=== PATIENT | male | born 1990 | race Hispanic/Latino ===

== ENCOUNTER 2020-04-15 11:11 | Observation (INO) | payer BC ==
[~2020-04-15] VITALS: Ht 160 cm; Wt 102.5 kg
[2020-04-15 11:46] VITALS: BP 122/77
[2020-04-15] MEDS ORDERED: BUTORPHANOL TARTRATE 2 MG/ML IVP PRN (12:15)
[2020-04-15] MEDS ORDERED: ONDANSETRON HCL 4 MG/2 ML VIAL IVP PRN (12:15)
[2020-04-15] MEDS: DEXTROSE 5 % AND 0.9 % NACL 1,000 ML IV SCH ×2 (12:15→20:40)
--- NOTE | 2020-04-15 14:25 | NUR ---
SPOKE WITH AURA FROM DR. WELLS'S OFFICE IN REGARDS TO NEW GI CONSULT. TO BE NOTIFIED.
[2020-04-15] MEDS: MEPERIDINE-PF 50 MG/ML SYG IM PRN ×2 (14:45→23:44)
[2020-04-15] MEDS: PROMETHAZINE HCL 25 MG/ML 1ML AMPULE IM PRN ×2 (14:45→23:43)
[2020-04-15 14:56] LABS: HEMATOCRIT 35.8 % (42-54); MEAN CORPUSCULAR HEMOGLOBIN 28.3 pg (27.0-33.0); MEAN CORPUSCULAR HGB CONC 34.4 g/dL (32.0-36.0); MEAN CORPUSCULAR VOLUME 82.3 fL (79-99); RED BLOOD CELL COUNT(AUTO) 4.35 MIL/uL (4.50-6.20); RED CELL DISTRIBUTION WIDTH 14.2 % (11.0-15.5); WHITE BLOOD COUNT (AUTO) 12.7 K/uL (4.8-10.8)
--- NOTE | 2020-04-15 15:20 | NUR ---
AURA FROM DR. WELLS'S OFFICE CALLED AND STATED THAT DR. WELLS REQUIRES A COVID PCR SWAB TO BE DONE PRIOR TO ANY CONSULT.
[2020-04-15 15:58] LABS: ALBUMIN 3.1 g/dL (3.5-5.0); BILIRUBIN,DIRECT 1.4 mg/dL (0.0-0.3); CREATININE 0.4 mg/dL (0.5-1.5); POTASSIUM 3.3 mmol/L (3.5-5.1); TOTAL PROTEIN, SERUM 7.4 g/dL (6.0-8.3)
[2020-04-15 16:09] VITALS: BP 123/68
--- NOTE | 2020-04-15 17:00 | NUR ---
DR. SCOTT CALLED AND WAS UPDATED ON PATIENT'S STATUS, LABS AND US RESULTS. INFORMED DR. SCOTT PER DR. FRENCH NURSE AURA DR. FRENCH REQUIRES ALL CONSULTS TO HAVE COVID PCR DONE AND THAT SWAB WAS DONE ALREADY. NO NEW ORDERS RECEIVED.
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
[2020-04-15 19:46] VITALS: BP 115/69
[2020-04-15] MEDS: FAMOTIDINE/PF 20 MG/2 ML VIAL IV SCH (20:40)
[2020-04-15 23:14] VITALS: BP 126/66
[2020-04-16] MEDS: DEXTROSE 5 % AND 0.9 % NACL 1,000 ML IV SCH (01:38)
[2020-04-16 03:58] VITALS: BP 115/71
[2020-04-16] MEDS ORDERED: PANT40TA25 PO (07:44)
[2020-04-16] MEDS ORDERED: ONDA4TAB10 PO (07:44)
[2020-04-16] MEDS ORDERED: FOLI20CA PO (07:44)
[2020-04-16] MEDS ORDERED: DOCU-272 PO (07:44)
[2020-04-16] MEDS ORDERED: NITR100C PO (07:44)
[2020-04-16 07:45] VITALS: BP 118/69
--- NOTE | 2020-04-16 08:25 | NUR ---
SPOKE WITH DR. WELLS VIA TELEPHONE. NEW ORDERS RECEIVED TO REPEAT LABS.
--- NOTE | 2020-04-16 08:30 | NUR ---
DR. SCOTT ROUNDING ON PATIENT. INFORMED MD ON 'S STANDPOINT. NEW ORDERS FOR GENERAL SURGICAL CONSULT ORDERED.
--- NOTE | 2020-04-16 08:50 | NUR ---
DR. CLARK ROUNDING ON PATIENT AND SPOKE WITH DR. SCOTT. POC DISCUSSED WITH PATIENT. QUESTIONS INVITED AND ANSWERED.
[2020-04-16] MEDS: FAMOTIDINE/PF 20 MG/2 ML VIAL IV SCH (09:19)
[2020-04-16 09:30] LABS: HEMATOCRIT 32.5 % (42-54); MEAN CORPUSCULAR HEMOGLOBIN 28.1 pg (27.0-33.0); MEAN CORPUSCULAR HGB CONC 34.2 g/dL (32.0-36.0); MEAN CORPUSCULAR VOLUME 82.3 fL (79-99); RED BLOOD CELL COUNT(AUTO) 3.95 MIL/uL (4.50-6.20); RED CELL DISTRIBUTION WIDTH 14.1 % (11.0-15.5); WHITE BLOOD COUNT (AUTO) 9.2 K/uL (4.8-10.8)
[2020-04-16 09:47] LABS: ALBUMIN 2.4 g/dL (3.5-5.0); BILIRUBIN,TOTAL 1.3 mg/dL (0.2-1.0); CREATININE 0.5 mg/dL (0.5-1.5); POTASSIUM 3.3 mmol/L (3.5-5.1); TOTAL PROTEIN, SERUM 6.2 g/dL (6.0-8.3)
[2020-04-16 11:15] VITALS: BP 112/70
--- NOTE | 2020-04-16 12:30 | NUR ---
SPOKE WITH DR. WELLS AND NOTIFIED ON LAB RESULTS AND DR. SCOTT/ DR. CLARK POC. DR. WELLS STATES PATIENT OKAY TO BE DISCHARGED FROM HIS STANDPOINT.
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
== END 2020-04-16 14:55 | disposition home or self-care (01) ==
LOC: EDH 11:11 → WSH 11:12
PROVIDERS: ADMIT Obstetrics & Gynecology; ATTEND Obstetrics & Gynecology
DX: U07.1 COVID-19 (principal); K85.90 Acute pancreatitis without necrosis or infection, unspecified; R17 Unspecified jaundice
CPT/HCPCS: 36415 ×2; 76705; 80053 ×2; 80076; 82150 ×2; 83690 ×2; 85027 ×2; 96361 ×2; 96372; 96374; 96376; 99284; G0378 ×14; J2175 ×2; J2550 ×2; J3490 ×2; J7042 ×2; U0003

== ENCOUNTER 2020-04-23 06:26 | Day surgery (SDC) | payer BC ==
[2020-04-18 11:34] LABS: BASOPHILS % (AUTO) 0.5 % (0.0-5.0); EOSINOPHILS % (AUTO) 1.8 % (0.0-8.0); HEMATOCRIT 35.7 % (42-54); LYMPHOCYTES % (AUTO) 17.6 % (21.0-51.0); MEAN CORPUSCULAR HEMOGLOBIN 27.9 pg (27.0-33.0); MEAN CORPUSCULAR HGB CONC 33.6 g/dL (32.0-36.0); MONOCYTES % (AUTO) 5.1 % (3.0-13.0); NEUTROPHILS % (AUTO) 74.6 % (40.0-77.0); PLATELET COUNT (AUTO) 380 K/uL (130-400); RED CELL DISTRIBUTION WIDTH 13.7 % (11.0-15.5); WHITE BLOOD COUNT (AUTO) 9.4 K/uL (4.8-10.8)
[~2020-04-23] VITALS: Ht 160 cm; Wt 104.2 kg
[2020-04-23] VITALS (17 sets, daily range): BP systolic 121–141; BP diastolic 62–88
[2020-04-23] MEDS: CEFAZOLIN SODIUM 1 GM VIAL IVP SCH ×2 (06:00→11:15)
[~2020-04-23 06:26] MED LIST: DOCU-272 PO; FOLI0.4T2 PO; ONDA4TAB10 PO; PREN-18 PO
[2020-04-23] MEDS ORDERED: LACTATED RINGERS 1000ML 1,000 ML IV ONE (06:54)
[2020-04-23] MEDS ORDERED: BUPIVACAINE/PF 0.5% 30ML VIAL ONE (08:09)
[2020-04-23] MEDS ORDERED: DEXAMETHASONE SOD PHOSPHATE 10MG/ML 1ML VIAL ONE (11:09)
[2020-04-23] MEDS ORDERED: PROPOFOL 10 MG/ML 20ML VIAL IV ONE (11:09)
[2020-04-23] MEDS ORDERED: LIDOCAINE PF 2% 5ML ABBOJECT ONE (11:09)
[2020-04-23] MEDS ORDERED: ONDANSETRON HCL 4 MG/2 ML VIAL ONE (11:09)
[2020-04-23] MEDS ORDERED: FENTANYL CITRATE PF 50 MCG/1 ML 2ML VIAL ONE ×2 (11:09→12:02)
[2020-04-23] MEDS ORDERED: MIDAZOLAM HCL 1 MG/ML 2ML VIAL ONE (11:09)
[2020-04-23] MEDS ORDERED: ROCURONIUM 10MG/1ML SYR 10 MG/ML ML ONE ×3 (11:10→12:27)
[2020-04-23] MEDS ORDERED: GLYCOPYRROLATE 1 MG/5 ML SYRINGE ONE (12:53)
[2020-04-23] MEDS ORDERED: NEOSTIGMINE 5MG/5ML SYR IV ONE (12:53)
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
--- NOTE | 2020-04-23 14:50 | NUR ---
DISCHARGE PRESCRIPTION GIVEN TO PT. DRSG X3 DRY AND INTACT. NO BLEEDING NOTED TO EARNESTINE PAD. INSTRUCTIONS GIVEN.
== END 2020-04-23 14:55 | disposition home or self-care (01) ==
LOC: DAH 06:26
PROVIDERS: ATTEND Obstetrics & Gynecology
DX: O99.611 Diseases of the digestive system complicating pregnancy, first trimester (principal); K80.10 Calculus of gallbladder with chronic cholecystitis without obstruction; O34.31 Maternal care for cervical incompetence, first trimester; Z3A.12 12 weeks gestation of pregnancy
CPT/HCPCS: 36415 ×2; 47562; 59320; 76815; 85025; 86850; 86900; 86901; A4215; A4221; A4222; A4223; A4351; A4649 ×5; A4663; A4930; A6206; A6207; C1769 ×4; J0690; J1100; J2001; J2405; J2704; J2710; J3010 ×2; J3490 ×2; J7030; J7120; J2250

== ENCOUNTER 2020-09-01 12:03 | Observation (INO) | payer OTHER, BC ==
[~2020-09-01] VITALS: Ht 160 cm; Wt 112.0 kg
[~2020-09-01 12:03] MED LIST changes: -DOCU-272 PO; +DOCU-280 PO; -FOLI0.4T2 PO; +FOLI0.4T6 PO
[2020-09-01 12:39] LABS: APPEARANCE,URINE Clear (CLEAR); BILIRUBIN,URINE Negative (NEGATIVE); COLOR,URINE Yellow (YELLOW); GLUCOSE, URINE (UA) Negative (NEGATIVE); KETONES,URINE Negative (NEGATIVE); LEUKOCYTE ESTERASE ,URINE Moderate (NEGATIVE); NITRATE,URINE Negative (NEGATIVE); OCCULT BLOOD,URINE Small (NEGATIVE); PH,URINE 7.5 (5.0-8.0); PROTEIN,URINE Negative (NEGATIVE); UROBILINOGEN,URINE 0.2 mg/dL (0.2-1.0)
[2020-09-01 13:08] LABS: BACTERIA,URINE Few /HPF (None Seen); RBC,URINE 0-1 /HPF (0-1)
[2020-09-01] MEDS ORDERED: PHARMACY COMMUNICATION MISC SCH (13:30)
[2020-09-01] MEDS ORDERED: CELESTONE SOLUSPAN 6 MG/ML 5ML VIAL IM SCH (14:00)
[2020-09-24] MEDS ORDERED: FOLI0.4T6 PO (02:35)
== END 2020-09-02 14:03 | disposition home or self-care (01) ==
LOC: EDH 12:03 → OBSVTOIN 12:04 → INTOOBSV 12:04 → LDH 12:04 → WSH 13:35
PROVIDERS: ADMIT Obstetrics & Gynecology; ATTEND Obstetrics & Gynecology
DX: O34.33 Maternal care for cervical incompetence, third trimester (principal); O26.853 Spotting complicating pregnancy, third trimester; O09.293 Supervision of pregnancy with other poor reproductive or obstetric history, third trimester; Z86.19 Personal history of other infectious and parasitic diseases; Z90.49 Acquired absence of other specified parts of digestive tract; Z3A.29 29 weeks gestation of pregnancy
CPT/HCPCS: 59025; 76805; 81001; 87088; 96372; 99284; G0378 ×26; J0702 ×2

== ENCOUNTER 2020-09-24 02:16 | Inpatient (IN) | payer OTHER, BC ==
[~2020-09-24] VITALS: Ht 160 cm; Wt 113.4 kg
[~2020-09-24 02:16] MED LIST changes: +DOCU-272 PO; -DOCU-280 PO; +FOLI0.4T2 PO; -FOLI0.4T6 PO
[2020-09-24] MEDS ORDERED: DOCU-116 PO (02:35)
[2020-09-24] MEDS ORDERED: PREN-196 PO (02:35)
[2020-09-24] MEDS ORDERED: FOLI0.4T2 PO (02:35)
[2020-09-24] MEDS ORDERED: LACTATED RINGERS 1000ML 1,000 ML IV PRN (03:00)
[2020-09-24 03:08] LABS: APPEARANCE,URINE Clear (CLEAR); BILIRUBIN,URINE Negative (NEGATIVE); COLOR,URINE Yellow (YELLOW); GLUCOSE, URINE (UA) Negative (NEGATIVE); KETONES,URINE Negative (NEGATIVE); LEUKOCYTE ESTERASE ,URINE Moderate (NEGATIVE); NITRATE,URINE Negative (NEGATIVE); OCCULT BLOOD,URINE Large (NEGATIVE); PROTEIN,URINE Negative (NEGATIVE); UROBILINOGEN,URINE 0.2 mg/dL (0.2-1.0)
[2020-09-24 03:12] LABS: HEMATOCRIT 34.9 % (36-48); MEAN CORPUSCULAR HEMOGLOBIN 28.2 pg (27.0-33.0); MEAN CORPUSCULAR HGB CONC 34.1 g/dL (32.0-36.0); MEAN CORPUSCULAR VOLUME 82.7 fL (79-99); RED BLOOD CELL COUNT(AUTO) 4.22 MIL/uL (4.00-5.50); RED CELL DISTRIBUTION WIDTH 13.9 % (11.0-15.5); WHITE BLOOD COUNT (AUTO) 12.4 K/uL (4.8-10.8)
[2020-09-24 03:17] LABS: AMPHET/METH SCREEN,URINE NEGATIVE (NEGATIVE); BARBITURATE SCREEN, URINE NEGATIVE (NEGATIVE); BENZODIAZEPINES SCREEN,URINE NEGATIVE (NEGATIVE); CANNABINOID SCREEN,URINE NEGATIVE (NEGATIVE); COCAINE SCREEN,URINE NEGATIVE (NEGATIVE); OPIATE SCREEN,URINE NEGATIVE (NEGATIVE); PHENCYCLIDINE SCREEN,URINE NEGATIVE (NEGATIVE)
[2020-09-24 03:19] LABS: BACTERIA,URINE Few /HPF (None Seen); RBC,URINE 0-1 /HPF (0-1)
[2020-09-24] MEDS ORDERED: MAGNESIUM 4GM PREMIX 100ML 100 ML IV SCH (03:30)
[2020-09-24] MEDS ORDERED: MAGNESIUM SULFATE 1,000 ML IV PRN (03:30)
[2020-09-24] MEDS ORDERED: CALCIUM GLUCONATE 1 GM/10 ML VIAL IV PRN (03:30)
[2020-09-24] MEDS: CELESTONE SOLUSPAN 6 MG/ML 5ML VIAL IM SCH ×2 (03:51→18:40)
[2020-09-24] MEDS: AMPICILLIN 2GM+NS 100ML 100 ML IV SCH ×3 (04:10→15:51)
[2020-09-24] MEDS ORDERED: ROPIVACAINE 0.2% 100ML VIAL 100 ML EP SCH (07:30)
[2020-09-24] MEDS ORDERED: NALOXONE HCL 0.4 MG/1 ML ML IV PRN (07:30)
[2020-09-24] MEDS ORDERED: BUTORPHANOL TARTRATE 2 MG/ML IVP PRN (07:30)
[2020-09-24] MEDS ORDERED: EPHEDRINE SULFATE 50 MG/ML AMPULE IVP PRN (07:30)
[2020-09-24] MEDS ORDERED: LACTATED RINGERS 500 ML 500 ML IV PRN (07:30)
[2020-09-24 08:13] LABS: RAPID PLASMA REAGIN NONREACTIVE (NONREACTIVE)
[2020-09-24 08:25] VITALS: BP 139/81
[2020-09-24] MEDS ORDERED: OXYTOCIN-LR 20 UNITS/1000 ML 1,000 ML IV ONE (08:40)
[2020-09-24] MEDS ORDERED: OXYTOCIN-LR 20 UNITS/1000 ML 1,000 ML IV SCH (08:45)
[2020-09-24] MEDS ORDERED: LIDOCAINE HCL 1% 20 ML VIAL ONE (23:22)
[2020-09-25] MEDS: AMPICILLIN 2GM+NS 100ML 100 ML IV SCH (04:04)
[2020-09-25] MEDS ORDERED: OXYTOCIN-LR 20 UNITS/1000 ML 1,000 ML IV SCH (08:30)
[2020-09-25] MEDS ORDERED: CALDOLOR 800MG+NS 250ML 250 ML IV PRN (08:30)
[2020-09-25] MEDS ORDERED: LACTATED RINGERS 1000ML 1,000 ML IV SCH (08:30)
[2020-09-25] MEDS ORDERED: CEFAZOLIN SODIUM 1 GM VIAL IVP PRN (08:30)
[2020-09-25] MEDS ORDERED: CEFAZOLIN SODIUM 1 GM VIAL ONE (09:08)
[2020-09-25] MEDS ORDERED: MISOPROSTOL 200 MCG TABLET ONE (09:08)
[2020-09-25] MEDS ORDERED: CALDOLOR 800MG+NS 250ML 250 ML IV ONE (09:08)
[2020-09-25] MEDS ORDERED: METHYLERGONOVINE MALEATE 0.2 MG/1 ML ML ONE (09:09)
[2020-09-25] MEDS ORDERED: ONDANSETRON HCL 4 MG/2 ML VIAL ONE (09:50)
[2020-09-25] MEDS ORDERED: ONDANSETRON HCL 4 MG/2 ML VIAL IVP SCH (10:00)
[2020-09-25] MEDS ORDERED: CITRIC ACID/SODIUM CITRATE 30 ML UDCUP ONE (10:10)
[2020-09-25] MEDS ORDERED: DURAMORPH PF1 MG/ML 10ML AMP IV ONE (10:12)
[2020-09-25] MEDS ORDERED: FENTANYL CITRATE PF 50 MCG/1 ML 2ML VIAL ONE (10:12)
[2020-09-25] MEDS ORDERED: DEXAMETHASONE SOD PHOSPHATE 10MG/ML 1ML VIAL ONE (10:20)
[2020-09-25] MEDS ORDERED: ACETAMINOPHEN-CODEINE 300/30MG TAB PO PRN (11:30)
[2020-09-25] MEDS ORDERED: SODIUM CHLORIDE 0.9% 10 ML VIAL IVP PRN (11:30)
[2020-09-25] MEDS ORDERED: DIPHENHYDRAMINE HCL 25 MG CAPSULE PO PRN (11:30)
[2020-09-25] MEDS: IBUPROFEN 800 MG TAB PO SCH ×2 (11:30→18:59)
[2020-09-25] MEDS ORDERED: OXYTOCIN-LR 20 UNITS/1000 ML 1,000 ML IV PRN (11:30)
[2020-09-25] MEDS ORDERED: BISACODYL 10 MG SUPP.RECT RC PRN (11:30)
[2020-09-25] MEDS ORDERED: ACETAMINOPHEN EXTRA STRENGTH 500 MG TABLET PO PRN (11:30)
[2020-09-25] MEDS ORDERED: LANOLIN 30GM OINTMENT TP PRN (11:30)
[2020-09-25] MEDS ORDERED: HYDROCODONE/ACETAMINOPHEN 5/325 MG TAB PO PRN (11:30)
[2020-09-25] MEDS ORDERED: EPHEDRINE SULFATE 50 MG/ML AMPULE IVP PRN (12:15)
[2020-09-25] MEDS ORDERED: NALOXONE HCL 0.4 MG/1 ML ML IVP PRN ×3 (12:15)
[2020-09-25] MEDS ORDERED: DiphenhydrAMINE HCL 50 MG/ML VIAL IVP PRN (12:15)
[2020-09-25] MEDS ORDERED: ONDANSETRON HCL 4 MG/2 ML VIAL IVP PRN (12:15)
[2020-09-25 13:14] LABS: HEPATITIS Bs ANTIGEN SCREEN P Negative (Negative)
[2020-09-25 15:00] VITALS: BP 121/76
[2020-09-25] MEDS: CALDOLOR 800MG+NS 250ML 250 ML IV SCH (18:58)
[2020-09-25] MEDS: DEXTROSE 5 %-0.45 % NACL 1,000 ML IV PRN (19:04)
[2020-09-25 19:31] VITALS: BP 111/71
[2020-09-25] MEDS: DOCUSATE SODIUM 100 MG CAP PO SCH (20:27)
[2020-09-25] MEDS: SIMETHICONE 80 MG TAB.CHEW PO PRN (20:27)
[2020-09-25] MEDS ORDERED: LORATADINE 10 MG TABLET PO PRN (21:15)
[2020-09-25 23:27] VITALS: BP 119/71
[2020-09-25] MEDS: PROMETHAZINE HCL 25 MG/ML 1ML AMPULE IM PRN (23:30)
[2020-09-25] MEDS: MEPERIDINE-PF 75 MG/ML SYG IM PRN (23:30)
[2020-09-26] MEDS: DEXTROSE 5 %-0.45 % NACL 1,000 ML IV PRN (03:27)
[2020-09-26] MEDS: CALDOLOR 800MG+NS 250ML 250 ML IV SCH (03:27)
[2020-09-26 03:30] VITALS: BP 116/55
[2020-09-26] MEDS: PROMETHAZINE HCL 25 MG/ML 1ML AMPULE IM PRN (03:44)
[2020-09-26] MEDS: MEPERIDINE-PF 75 MG/ML SYG IM PRN (03:45)
[2020-09-26 07:41] VITALS: BP 117/66
[2020-09-26] MEDS: SIMETHICONE 80 MG TAB.CHEW PO PRN (08:45)
[2020-09-26] MEDS: DOCUSATE SODIUM 100 MG CAP PO SCH (08:45)
[2020-09-26] MEDS: IBUPROFEN 800 MG TAB PO SCH ×2 (08:46→16:54)
[2020-09-26] MEDS ORDERED: LIDOCAINE 5% TOPICAL PATCH TP SCH (09:00)
[2020-09-26 11:14] VITALS: BP 119/66
[2020-09-26 16:51] VITALS: BP 132/73
== END 2020-09-26 18:15 | disposition home or self-care (01) | DRG 786 ==
LOC: EDH 02:16 → OBSVTOIN 02:17 → LDH 02:17 → WSH 09-25 14:50
PROVIDERS: ADMIT Obstetrics & Gynecology; ATTEND Obstetrics & Gynecology
PROC: 10D00Z1 Extraction of Products of Conception, Low, Open Approach (ICD-10-PCS; principal; 2020-09-25 10:00)
DX: O42.913 Preterm premature rupture of membranes, unspecified as to length of time between rupture and onset of labor, third trimester (principal); O60.14X0 Preterm labor third trimester with preterm delivery third trimester, not applicable or unspecified; O62.2 Other uterine inertia; Z3A.35 35 weeks gestation of pregnancy; Z37.0 Single live birth
CPT/HCPCS: 36415; 59510; 76805; 80305; 81001; 85027; 86592; 86701; 86850; 86900; 86901; 87088; 87340; 87390; A4314; A4344; G0378; J0290; J0690; J0702; J1100; J1741; J2175; J2210; J2274; J2405; J2550; J2590; J2795; J3010; J3475; J7120

== ENCOUNTER 2022-06-12 03:56 | Emergency (ER) | payer OTHER, BC ==
[~2022-06-12] VITALS: Ht 160 cm; Wt 111.1 kg
[~2022-06-12 03:56] MED LIST changes: +DOCU-116 PO; -DOCU-272 PO; +DOCU-280 PO; -FOLI0.4T2 PO; +FOLI0.4T6 PO; +PREN-196 PO
[2022-06-12 04:06] VITALS: BP 116/73
[2022-06-12] MEDS ORDERED: 0.9%NACL 1000ML 2,000 ML IV ONE (04:30)
[2022-06-12 04:36] LABS: BASOPHILS % (AUTO) 0.6 % (0.0-5.0); EOSINOPHILS % (AUTO) 2.3 % (0.0-8.0); HEMATOCRIT 36.7 % (36-48); LYMPHOCYTES % (AUTO) 10.4 % (21.0-51.0); MEAN CORPUSCULAR HEMOGLOBIN 27.9 pg (27.0-33.0); MEAN CORPUSCULAR HGB CONC 34.3 g/dL (32.0-36.0); MEAN CORPUSCULAR VOLUME 81.2 fL (79-99); MONOCYTES % (AUTO) 6.5 % (3.0-13.0); NEUTROPHILS % (AUTO) 79.8 % (40.0-77.0); PLATELET COUNT (AUTO) 329 K/uL (130-400); RED BLOOD CELL COUNT(AUTO) 4.52 MIL/uL (4.00-5.50); RED CELL DISTRIBUTION WIDTH 13.2 % (11.0-15.5); WHITE BLOOD COUNT (AUTO) 12.4 K/uL (4.8-10.8)
[2022-06-12 04:54] LABS: APPEARANCE,URINE CLOUDY (CLEAR); BILIRUBIN,URINE NEGATIVE (NEGATIVE); COLOR,URINE YELLOW (YELLOW); GLUCOSE, URINE (UA) NEGATIVE (NEGATIVE); KETONES,URINE NEGATIVE (NEGATIVE); LEUKOCYTE ESTERASE ,URINE NEGATIVE Leu/uL (NEGATIVE); NITRATE,URINE NEGATIVE (NEGATIVE); OCCULT BLOOD,URINE SMALL (NEGATIVE); PROTEIN,URINE 30 mg/dL (NEGATIVE); UROBILINOGEN,URINE 0.2 mg/dL (0.2-1.0)
[2022-06-12 04:58] LABS: ALBUMIN 3.6 g/dL (3.5-5.0); CREATININE 0.6 mg/dL (0.5-1.5)
[2022-06-12 04:58] LABS: MUCUS,URINE FEW LPF (None Seen); SQUAMOUS EPITHELIAL CELL,UR RARE /HPF (0-2)
[2022-06-12] MEDS ORDERED: DIPH1TAB PO (05:10)
[2022-06-12] MEDS ORDERED: CEFU500T67 PO (05:10)
[2022-06-12] MEDS ORDERED: DIPHENOXYLATE HCL/ATROPINE 2.5/0.025 MG TAB PO ONE (05:30)
[2022-06-12] MEDS ORDERED: KCL 20 MEQ ERTAB PO ONE ×2 (05:30→05:33)
== END 2022-06-12 05:56 | disposition home or self-care (01) ==
LOC: EDH 03:56
DX: R19.7 Diarrhea, unspecified (principal); N39.0 Urinary tract infection, site not specified; R42 Dizziness and giddiness; Z79.899 Other long term (current) drug therapy; Z98.890 Other specified postprocedural states
CPT/HCPCS: 99283; 96360; 80053; 84703; 85025; 87088; 81001; 36415; J7030

== ENCOUNTER 2023-09-24 18:36 | Emergency (ER) | payer BC, OTHER ==
[~2023-09-24] VITALS: Ht 160 cm; Wt 102.5 kg
[~2023-09-24 18:36] MED LIST changes: +CEFU500T67 PO; +DIPH1TAB PO
[2023-09-24 19:35] LABS: BASOPHILS # (AUTO) 0.04 K/uL (0.00-0.20); BASOPHILS % (AUTO) 0.2 % (0.0-5.0); EOSINOPHILS # (AUTO) 0.49 K/uL (0.00-0.70); EOSINOPHILS % (AUTO) 2.5 % (0.0-8.0); HEMATOCRIT 43.7 % (36-48); IMMATURE GRANULOCYTE ABSOLUTE 0.11 K/uL (0-1); LYMPHOCYTES # (AUTO) 2.6 K/uL (1.0-4.8); LYMPHOCYTES % (AUTO) 13.3 % (21.0-51.0); MEAN CORPUSCULAR HEMOGLOBIN 28.1 pg (27.0-33.0); MEAN CORPUSCULAR HGB CONC 34.8 g/dL (32.0-36.0); MEAN CORPUSCULAR VOLUME 80.8 fL (79-99); MONOCYTES # (AUTO) 0.9 K/uL (0.1-1.0); MONOCYTES % (AUTO) 4.6 % (3.0-13.0); NEUTROPHILS # (AUTO) 15.4 K/uL (1.8-7.7); NEUTROPHILS % (AUTO) 78.8 % (40.0-77.0); PLATELET COUNT (AUTO) 386 K/uL (130-400); RED BLOOD CELL COUNT(AUTO) 5.41 MIL/uL (4.00-5.50); RED CELL DISTRIBUTION WIDTH 13.4 % (11.0-15.5); WHITE BLOOD COUNT (AUTO) 19.5 K/uL (4.8-10.8)
[2023-09-24 19:45] LABS: CREATININE 0.7 mg/dL (0.5-1.5); POTASSIUM 3.2 mmol/L (3.5-5.1)
[2023-09-24 19:49] LABS: ALBUMIN 3.8 g/dL (3.5-5.0); BILIRUBIN,TOTAL 0.6 mg/dL (0.2-1.0); TOTAL PROTEIN, SERUM 7.5 g/dL (6.0-8.3)
[2023-09-24] MEDS: ONDANSETRON 4MG INJ IVP ONE (20:02)
[2023-09-24] MEDS: FAMOTIDINE 20MG VIAL IV ONE (20:02)
[2023-09-24] MEDS: 0.9%NACL 1000ML 1,000 ML IV ONE (20:03)
[2023-09-24 20:26] LABS: APPEARANCE,URINE CLEAR (CLEAR); BILIRUBIN,URINE NEGATIVE (NEGATIVE); COLOR,URINE YELLOW (YELLOW); GLUCOSE, URINE (UA) NEGATIVE (NEGATIVE); KETONES,URINE 20 mg/dL (NEGATIVE); LEUKOCYTE ESTERASE ,URINE NEGATIVE Leu/uL (NEGATIVE); NITRATE,URINE NEGATIVE (NEGATIVE); PROTEIN,URINE 50 mg/dL (NEGATIVE); UROBILINOGEN,URINE 0.2 mg/dL (0.2-1.0)
[2023-09-24 20:30] LABS: ADD UA MICROSCOPIC YES
[2023-09-24 20:34] LABS: BACTERIA,URINE RARE /HPF (None Seen); HCG,QUALITATIVE URINE NEGATIVE (NEGATIVE); MUCUS,URINE MOD LPF (None Seen); SQUAMOUS EPITHELIAL CELL,UR RARE /HPF (0-2)
[2023-09-24] MEDS: LEVOFLOXACIN 500 MG/D5W 100 ML 100 ML IV ONE (21:15)
[2023-09-24] MEDS: KCL 20 MEQ ERTAB PO ONE (21:15)
[2023-09-24] MEDS ORDERED: DICY20TA2 PO (21:47)
[2023-09-24] MEDS ORDERED: ONDA4TAB10 PO (21:47)
[2023-09-24] MEDS ORDERED: LEVO-70 PO (21:47)
[2023-09-24] MEDS ORDERED: METR-172 PO (21:47)
[2023-09-24] MEDS: METRONIDAZOLE 500 MG TABLET PO SCH (22:02)
[2023-09-24] MEDS: ONDANSETRON ODT 4MG TAB SL ONE (22:05)
[2023-09-24 22:18] VITALS: BP 119/72; PULSE 99; RESP 19; O2SAT 100
== END 2023-09-24 22:26 | disposition home or self-care (01) ==
LOC: EDH 18:36
DX: A04.9 Bacterial intestinal infection, unspecified (principal); R19.7 Diarrhea, unspecified; E87.6 Hypokalemia; Z79.899 Other long term (current) drug therapy; Z98.890 Other specified postprocedural states
CPT/HCPCS: 99284; 96365; 96375; 96361; 80053; 83690; 85025; 87040 ×2; 83605; 81001; 81025; 36415; J3490; J1956; J2405

== ENCOUNTER 2024-10-03 17:35 | Emergency (ER) | payer OTHER ==
[~2024-10-03] VITALS: Ht 160 cm; Wt 111.1 kg
[~2024-10-03 17:35] MED LIST changes: +DICY20TA2 PO; +LEVO-70 PO; +METR-172 PO; +ONDA-243 PO; -ONDA4TAB10 PO
[2024-10-03 19:51] VITALS: BP 135/83; PULSE 74; RESP 20; TEMP 98.3; O2SAT 99
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
[2024-10-03] MEDS: ketOROlac 60 MG VIAL (30MG/ML) IM ONE (19:59)
[2024-10-03] MEDS: CYCLOBENZAPRINE HCL 10 MG TABLET PO ONE (19:59)
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
[2024-10-03] MEDS ORDERED: IBUP-2070 PO (20:27)
[2024-10-03] MEDS ORDERED: CYCL10TA16 PO (20:27)
== END 2024-10-03 20:38 | disposition home or self-care (01) ==
LOC: EDH 17:35
DX: M54.50 Low back pain, unspecified (principal); Z98.51 Tubal ligation status; Z79.899 Other long term (current) drug therapy; V89.2XXA Person injured in unspecified motor-vehicle accident, traffic, initial encounter; Y93.89 Activity, other specified; Y92.89 Other specified places as the place of occurrence of the external cause; Y99.8 Other external cause status
CPT/HCPCS: 99284; 81025; 72100; 96372; J1885; 99283